=== PATIENT | female | born 1960 | race Two or more races ===

== ENCOUNTER 2016-10-28 23:08 | Inpatient (IN) | payer MEDICAID ==
[~2016-10-28] VITALS: Ht 157.5 cm; Wt 100.8 kg
[2016-10-28 23:38] LABS: Basophils # (auto) 0 uL; Basophils % (auto) 0.3 % (0.0-2.0); DEFINITIVE VIEW TRANSMISSION; Eosinophils # (auto) 0.2 uL; Eosinophils % (auto) 1.2 % (0.0-7.0); Hematocrit 36.5 % (36.0-46.0); Hemoglobin 11.6 g/dL (12.2-16.2); Lymphocytes # (auto) 1.5 uL; Lymphocytes % (auto) 9.4 % (10.0-50.0); Mean Corpuscular Hemoglobin 24.5 pg (28.0-32.0); Mean Corpuscular Hgb Conc. 31.7 g/dL (32.0-36.0); Mean Corpuscular Volume 77.1 fL (80.0-100.0); Mean Platelet Volume 10.6 fL (7.4-10.4); Monocytes % (auto) 6.5 % (0.0-12.0); Neutrophils # (auto) 13.1 uL; Neutrophils % (auto) 82.6 % (37.0-80.0); Platelet Count (auto) 311 10^3/uL (140-450); Red Cell Distribution Width 17.8 % (11.6-16.0); White Blood Cell 15.8 10^3/uL (4.4-10.8)
[2016-10-28 23:49] LABS: INR 1.11 (0.9-1.15); Partial Thromboplastin Time 27.6 sec (22.64-33.71); Prothrombin Time 11.4 sec (9.37-12.3)
[2016-10-28 23:52] LABS: Albumin 3.3 g/dL (3.4-5.0); BUN/Creatinine Ratio 21.4; Calcium 7.9 mg/dL (8.5-10.1); Magnesium 1.8 mg/dL (1.6-2.6); Potassium 4.1 mmol/L (3.5-5.1)
[2016-10-29] VITALS (30 sets, daily range): BP systolic 92–163; BP diastolic 43–90
[2016-10-29 00:01] LABS: Bilirubin, Total 0.3 mg/dL (0.2-1.0); Total Protein 7.5 g/dL (6.4-8.2)
[2016-10-29 00:13] LABS: B-Type Natriuretic Peptide 54.97 pg/mL (0-100)
[2016-10-29 00:49] LABS: Urine Bilirubin Negative (Negative); Urine Blood Negative /uL (Negative); Urine Color Yellow (Yellow); Urine Granular Cast FEW /lpf (0); Urine Hyaline Cast FEW /lpf (0 - 2); Urine Ketone Negative (Negative); Urine Nitrite Negative (Negative); Urine RBC <1 /hpf (0 - 4); Urine Urobilinogen Normal (Negative)
[2016-10-29 00:50] LABS: Urine Glucose 4+ mg/dL (Normal)
[2016-10-29] MEDS ORDERED: SODIUM CHLORIDE 0.9% 1,000 ML IV SCH ×2 (07:38→23:58)
[2016-10-29] MEDS ORDERED: IPRATROPIUM BROM 0.5 MG/2.5ML INH SOL NEB PRN (07:45)
[2016-10-29] MEDS ORDERED: MORPHINE SULF INJ 2 MG/ML SYRINGE 1ML IV PRN (07:45)
[2016-10-29] MEDS ORDERED: LACTULOSE 20Gm/30ML SOLN PO PRN (07:45)
[2016-10-29] MEDS ORDERED: DEXTROSE (50%) 50ML SYRG IV PRN (07:45)
[2016-10-29] MEDS ORDERED: LEVOFLOXACIN 500MG 100 ML IV ONE (07:45)
[2016-10-29] MEDS ORDERED: NITROGLYCERIN 0.4 MG SL TAB SL PRN (07:45)
[2016-10-29] MEDS ORDERED: LEVOFLOXACIN 500MG 100 ML IV SCH (08:00)
[2016-10-29] MEDS: FERROUS SULFATE 325 MG TAB PO SCH ×3 (08:04→18:00)
[2016-10-29] MEDS: methylPREDNISolone SOD SUCC 125 MG/2 ML VL IV SCH ×2 (08:04→08:06)
[2016-10-29] MEDS: ENOXAPARIN SOD 150 MG/1 ML SYRINGE SC SCH ×2 (08:04→08:05)
[2016-10-29] MEDS: PANTOPRAZOLE SODIUM 40 MG/10 ML VIAL IV SCH (08:05)
[2016-10-29 08:27] LABS: DEFINITIVE VIEW TRANSMISSION; Hematocrit 32.1 % (36.0-46.0); Hemoglobin 10.1 g/dL (12.2-16.2); Mean Corpuscular Hemoglobin 24.1 pg (28.0-32.0); Mean Corpuscular Hgb Conc. 31.4 g/dL (32.0-36.0); Mean Platelet Volume 10.3 fL (7.4-10.4); Platelet Count (auto) 304 10^3/uL (140-450); Red Cell Distribution Width 17.9 % (11.6-16.0); SUSPECT VIEW TRANSMISSION; White Blood Cell 17.1 10^3/uL (4.4-10.8)
[2016-10-29 08:28] LABS: BUN/Creatinine Ratio 19.7; Bilirubin, Total 0.3 mg/dL (0.2-1.0); Potassium 4.8 mmol/L (3.5-5.1); Total Protein 6.6 g/dL (6.4-8.2)
[2016-10-29 08:31] LABS: Metamyelocytes % 0; Myelocytes % 0; Promyelocytes % 0; Reactive Lymphocytes 0
[2016-10-29 09:20] LABS: Giant Platelets Few; Platelet Estimate Adequate
[2016-10-29] MEDS ORDERED: LISINOPRIL 20 MG TAB PO SCH (10:00)
[2016-10-29] MEDS ORDERED: POTASSIUM CHL 10 Meq TABLET PO SCH (10:00)
[2016-10-29] MEDS ORDERED: FUROSEMIDE 20 MG TAB PO SCH (10:00)
[2016-10-29] MEDS: IPRATROPIUM BROM 0.5 MG/2.5ML INH SOL NEB SCH ×3 (10:55→22:15)
[2016-10-29] MEDS: ALBUTEROL SULF 2.5 MG/0.5ML(0.5%) NEB SOLN NEB SCH ×4 (10:55→22:15)
[2016-10-29] MEDS: SODIUM CHLORIDE 0.9% 1,000 ML IV SCH (11:45)
[2016-10-29] MEDS ORDERED: methylPREDNISolone SOD SUCC 125 MG/2 ML VL IV SCH (12:00)
[2016-10-29] MEDS: methylPREDNISolone SOD SUCC 40 MG/ML VL IV SCH ×3 (12:15→23:46)
[2016-10-29] MEDS: ACCU-CHEK COMFORT CURVE STRIP VI SCH ×3 (12:17→23:47)
[2016-10-29] MEDS: InsuLIN REG 1unit/0.01ml Soln (100units/ml) SC SCH ×2 (12:18→18:21)
[2016-10-29 13:11] LABS: Basophils # (auto) 0 uL; Basophils % (auto) 0.1 % (0.0-2.0); DEFINITIVE VIEW TRANSMISSION; Eosinophils # (auto) 0 uL; Eosinophils % (auto) 0.1 % (0.0-7.0); Hemoglobin 10.4 g/dL (12.2-16.2); Lymphocytes # (auto) 0.6 uL; Lymphocytes % (auto) 4.5 % (10.0-50.0); Mean Corpuscular Hemoglobin 24.3 pg (28.0-32.0); Mean Corpuscular Hgb Conc. 31.5 g/dL (32.0-36.0); Mean Corpuscular Volume 77.3 fL (80.0-100.0); Mean Platelet Volume 10.1 fL (7.4-10.4); Monocytes # (auto) 0.2 uL; Monocytes % (auto) 1.7 % (0.0-12.0); Neutrophils # (auto) 13.4 uL; Neutrophils % (auto) 93.6 % (37.0-80.0); Platelet Count (auto) 277 10^3/uL (140-450); Red Cell Distribution Width 17.9 % (11.6-16.0); White Blood Cell 14.3 10^3/uL (4.4-10.8)
[2016-10-29 13:18] LABS: INR 1.14 (0.9-1.15); Partial Thromboplastin Time 37.5 sec (22.64-33.71); Prothrombin Time 11.7 sec (9.37-12.3)
[2016-10-29] MEDS: HEPARIN DRIP/D5W 100UNITS/ML 250 ML IV SCH ×2 (13:31→22:00)
[2016-10-29 19:18] LABS: INR 1.17 (0.9-1.15)
[2016-10-29] MEDS: AMITRIPTYLINE HCL 25 MG TAB PO SCH (21:56)
[2016-10-29] MEDS: BUDESONIDE (INHALATION) 0.5 MG/2 ML NEB NEB SCH (22:15)
[2016-10-29] MEDS ORDERED: InsuLIN R (HUMAN) 100 UNITS in SODIUM CHL 0.9% 99 ML IV SCH (23:58)
[2016-10-30] VITALS (37 sets, daily range): BP systolic 98–178; BP diastolic 44–85
[2016-10-30] MEDS: InsuLIN REG 1unit/0.01ml Soln (100units/ml) SC SCH ×11 (00:15→22:00)
[2016-10-30] MEDS: ACCU-CHEK COMFORT CURVE STRIP VI SCH ×12 (00:15→22:00)
[2016-10-30] MEDS ORDERED: DEXTROSE (50%) 50ML SYRG IV PRN ×2 (00:30)
[2016-10-30] MEDS ORDERED: InsuLIN REG 1unit/0.01ml Soln (100units/ml) SC ONE (01:00)
[2016-10-30 01:46] LABS: Prothrombin Time 12.2 sec (9.37-12.3)
[2016-10-30 01:48] LABS: INR 1.18 (0.9-1.15)
[2016-10-30 01:49] LABS: Partial Thromboplastin Time 80.9 sec (22.64-33.71)
[2016-10-30] MEDS: HEPARIN DRIP/D5W 100UNITS/ML 250 ML IV SCH ×4 (01:59→21:00)
[2016-10-30] MEDS ORDERED: ACCU-CHEK COMFORT CURVE STRIP VI SCH (02:00)
[2016-10-30] MEDS: ALBUTEROL SULF 2.5 MG/0.5ML(0.5%) NEB SOLN NEB SCH ×6 (02:20→22:05)
[2016-10-30] MEDS: IPRATROPIUM BROM 0.5 MG/2.5ML INH SOL NEB SCH ×6 (02:20→22:05)
[2016-10-30 03:51] LABS: Basophils # (auto) 0 uL; DEFINITIVE VIEW TRANSMISSION; Eosinophils # (auto) 0 uL; Hematocrit 31.6 % (36.0-46.0); Hemoglobin 9.9 g/dL (12.2-16.2); Lymphocytes # (auto) 0.8 uL; Lymphocytes % (auto) 7.1 % (10.0-50.0); Mean Corpuscular Hemoglobin 24.2 pg (28.0-32.0); Mean Corpuscular Hgb Conc. 31.5 g/dL (32.0-36.0); Mean Platelet Volume 10.1 fL (7.4-10.4); Monocytes # (auto) 0.4 uL; Monocytes % (auto) 3.3 % (0.0-12.0); Neutrophils # (auto) 10.2 uL; Neutrophils % (auto) 89.6 % (37.0-80.0); Platelet Count (auto) 278 10^3/uL (140-450); Red Cell Distribution Width 17.9 % (11.6-16.0); White Blood Cell 11.4 10^3/uL (4.4-10.8)
[2016-10-30] MEDS ORDERED: SODIUM CHLORIDE 0.9% 1,000 ML IV SCH ×2 (03:58→05:58)
[2016-10-30 04:17] LABS: Albumin 2.7 g/dL (3.4-5.0); BUN/Creatinine Ratio 37.6; Bilirubin, Total 0.3 mg/dL (0.2-1.0); Calcium 8.5 mg/dL (8.5-10.1); Magnesium 2.5 mg/dL (1.6-2.6); Potassium 4.6 mmol/L (3.5-5.1); Total Protein 6.4 g/dL (6.4-8.2)
[2016-10-30 04:19] LABS: B-Type Natriuretic Peptide 76.87 pg/mL (0-100)
[2016-10-30 04:45] LABS: Temperature: 21.9 C (20.0-25.0)
[2016-10-30] MEDS: methylPREDNISolone SOD SUCC 40 MG/ML VL IV SCH ×3 (06:29→19:05)
[2016-10-30] MEDS ORDERED: InsuLIN REG 1unit/0.01ml Soln (100units/ml) SC SCH (07:00)
[2016-10-30] MEDS ORDERED: LEVOFLOXACIN 250MG 50 ML IV SCH (08:00)
[2016-10-30 08:18] LABS: BUN/Creatinine Ratio 40.2; Calcium 8.4 mg/dL (8.5-10.1); Potassium 4.5 mmol/L (3.5-5.1)
[2016-10-30 08:42] LABS: INR 1.17 (0.9-1.15)
[2016-10-30 08:43] LABS: Partial Thromboplastin Time 71.3 sec (22.64-33.71)
[2016-10-30] MEDS: PANTOPRAZOLE SODIUM 40 MG/10 ML VIAL IV SCH (09:12)
[2016-10-30] MEDS: LEVOFLOXACIN 500MG 100 ML IV SCH (09:12)
[2016-10-30] MEDS: FERROUS SULFATE 325 MG TAB PO SCH ×3 (09:12→19:05)
[2016-10-30] MEDS: BUDESONIDE (INHALATION) 0.5 MG/2 ML NEB NEB SCH ×2 (10:14→22:05)
[2016-10-30 12:59] LABS: Calcium 8.4 mg/dL (8.5-10.1); Potassium 4.6 mmol/L (3.5-5.1)
[2016-10-30 14:23] LABS: INR 1.12 (0.9-1.15); Partial Thromboplastin Time 54.9 sec (22.64-33.71); Prothrombin Time 11.5 sec (9.37-12.3)
[2016-10-30] MEDS ORDERED: IOHEXOL 350 MG/ML 100ML IJ ONE (18:16)
[2016-10-30 19:46] LABS: BUN/Creatinine Ratio 38.4; Calcium 8.5 mg/dL (8.5-10.1); Potassium 4.5 mmol/L (3.5-5.1)
[2016-10-30 19:57] LABS: INR 1.1 (0.9-1.15); Partial Thromboplastin Time 33.5 sec (22.64-33.71); Prothrombin Time 11.3 sec (9.37-12.3)
[2016-10-30] MEDS: SODIUM CHLORIDE 0.9% 1,000 ML IV SCH (19:57)
[2016-10-30] MEDS ORDERED: HEPARIN 1,000 UNITS/ml 1ML VIAL ONE (20:52)
[2016-10-30] MEDS ORDERED: HEPARIN SODIUM (PORCINE) 5000 UNITS/ML 1ML VIAL IV ONE (21:00)
[2016-10-30] MEDS: AMITRIPTYLINE HCL 25 MG TAB PO SCH (22:00)
[2016-10-31] VITALS (25 sets, daily range): BP systolic 116–180; BP diastolic 46–95
[2016-10-31] MEDS: InsuLIN REG 1unit/0.01ml Soln (100units/ml) SC SCH ×7 (00:04→17:00)
[2016-10-31] MEDS: methylPREDNISolone SOD SUCC 40 MG/ML VL IV SCH ×4 (00:04→22:07)
[2016-10-31] MEDS: ACCU-CHEK COMFORT CURVE STRIP VI SCH ×9 (00:04→22:07)
[2016-10-31] MEDS: IPRATROPIUM BROM 0.5 MG/2.5ML INH SOL NEB SCH ×6 (02:16→23:15)
[2016-10-31] MEDS: ALBUTEROL SULF 2.5 MG/0.5ML(0.5%) NEB SOLN NEB SCH ×6 (02:16→23:15)
[2016-10-31 04:34] LABS: Basophils # (auto) 0 uL; Basophils % (auto) 0.1 % (0.0-2.0); DEFINITIVE VIEW TRANSMISSION; Eosinophils # (auto) 0 uL; Hematocrit 33.9 % (36.0-46.0); Hemoglobin 10.9 g/dL (12.2-16.2); Lymphocytes # (auto) 1.2 uL; Lymphocytes % (auto) 8.1 % (10.0-50.0); Mean Corpuscular Hemoglobin 24.9 pg (28.0-32.0); Mean Corpuscular Hgb Conc. 32.2 g/dL (32.0-36.0); Mean Corpuscular Volume 77.4 fL (80.0-100.0); Mean Platelet Volume 11.1 fL (7.4-10.4); Monocytes # (auto) 0.7 uL; Monocytes % (auto) 4.7 % (0.0-12.0); Neutrophils # (auto) 13.2 uL; Neutrophils % (auto) 87.1 % (37.0-80.0); Platelet Count (auto) 260 10^3/uL (140-450); Red Cell Distribution Width 16.8 % (11.6-16.0); SUSPECT VIEW TRANSMISSION; White Blood Cell 15.1 10^3/uL (4.4-10.8)
[2016-10-31 04:58] LABS: BUN/Creatinine Ratio 38.8; Calcium 8.4 mg/dL (8.5-10.1); Potassium 4.5 mmol/L (3.5-5.1)
[2016-10-31 05:18] LABS: Prothrombin Time 12.1 sec (9.37-12.3)
[2016-10-31 05:23] LABS: INR 1.17 (0.9-1.15)
[2016-10-31 05:25] LABS: Partial Thromboplastin Time 148.7 sec (22.64-33.71)
[2016-10-31] MEDS: FERROUS SULFATE 325 MG TAB PO SCH ×3 (08:28→18:00)
[2016-10-31] MEDS: BUDESONIDE (INHALATION) 0.5 MG/2 ML NEB NEB SCH ×2 (09:54→23:15)
[2016-10-31] MEDS: PANTOPRAZOLE SODIUM 40 MG/10 ML VIAL IV SCH ×2 (10:00→10:07)
[2016-10-31] MEDS: LEVOFLOXACIN 500MG 100 ML IV SCH (10:07)
[2016-10-31] MEDS: SODIUM CHLORIDE 0.9% 1,000 ML IV SCH (10:07)
[2016-10-31] MEDS ORDERED: FUROSEMIDE 20 MG TAB PO SCH (11:30)
[2016-10-31] MEDS ORDERED: LISINOPRIL 20 MG TAB PO SCH (11:30)
[2016-10-31] MEDS ORDERED: hydrALAZINE HCL 20 MG/ML VL IV PRN (12:00)
[2016-10-31] MEDS: HYDROcodone-ACET 10/325MG TAB PO PRN ×2 (12:14→19:34)
[2016-10-31] MEDS ORDERED: DEXTROSE (50%) 50ML SYRG IV PRN (12:15)
[2016-10-31] MEDS: amLODIPine BESYLATE 5 MG TAB PO SCH (12:17)
[2016-10-31] MEDS: INSULIN DETEMIR(LEVEMIR) 1unit/0.01ml Soln (100units/ml) SC SCH (12:38)
[2016-10-31] MEDS ORDERED: methylPREDNISolone SOD SUCC 40 MG/ML VL IV SCH (22:00)
[2016-10-31] MEDS ORDERED: InsuLIN REG 1unit/0.01ml Soln (100units/ml) SC SCH (22:00)
[2016-10-31] MEDS: AMITRIPTYLINE HCL 25 MG TAB PO SCH (22:07)
[2016-11-01] MEDS: IPRATROPIUM BROM 0.5 MG/2.5ML INH SOL NEB SCH ×5 (02:42→18:00)
[2016-11-01] MEDS: ALBUTEROL SULF 2.5 MG/0.5ML(0.5%) NEB SOLN NEB SCH ×5 (02:42→18:00)
[2016-11-01 05:00] VITALS: BP 126/54
[2016-11-01] MEDS: methylPREDNISolone SOD SUCC 40 MG/ML VL IV SCH ×2 (06:15→14:00)
[2016-11-01] MEDS: ACCU-CHEK COMFORT CURVE STRIP VI SCH ×3 (06:34→16:54)
[2016-11-01] MEDS: InsuLIN REG 1unit/0.01ml Soln (100units/ml) SC SCH ×3 (06:34→17:17)
[2016-11-01] MEDS: INSULIN DETEMIR(LEVEMIR) 1unit/0.01ml Soln (100units/ml) SC SCH (06:36)
[2016-11-01 06:51] LABS: Urine Bilirubin Negative (Negative); Urine Blood 2+ /uL (Negative); Urine Color Yellow (Yellow); Urine Glucose 4+ mg/dL (Normal); Urine Ketone Negative (Negative); Urine Mucus FEW (None Seen); Urine Nitrite Negative (Negative); Urine RBC 85 /hpf (0 - 4); Urine Squamous Epithelial Cell FEW /hpf (<5); Urine Urobilinogen Normal (Negative); Urine pH 6.5 (5.0-8.0)
[2016-11-01] MEDS: FERROUS SULFATE 325 MG TAB PO SCH ×3 (08:54→17:18)
[2016-11-01] MEDS: LEVOFLOXACIN 500MG 100 ML IV SCH (08:55)
[2016-11-01] MEDS: amLODIPine BESYLATE 5 MG TAB PO SCH (08:55)
[2016-11-01 09:00] VITALS: BP 157/76
[2016-11-01] MEDS ORDERED: FUROSEMIDE 20 MG TAB PO SCH (10:00)
[2016-11-01] MEDS: BUDESONIDE (INHALATION) 0.5 MG/2 ML NEB NEB SCH (11:16)
[2016-11-01 13:00] VITALS: BP 141/66
[2016-11-01] MEDS ORDERED: SITA100T7 PO (14:19)
[2016-11-01] MEDS ORDERED: LISI-646 PO (14:19)
[2016-11-01] MEDS ORDERED: ESCI20TA51 PO (14:19)
[2016-11-01] MEDS ORDERED: OME20T PO (14:19)
[2016-11-01] MEDS ORDERED: ALPR1TAB2 PO (14:19)
[2016-11-01] MEDS ORDERED: PIOG45TA OR (14:19)
[2016-11-01] MEDS ORDERED: GABA300C8 PO (14:19)
[2016-11-01] MEDS ORDERED: DOCU100T15 PO (14:19)
[2016-11-01] MEDS ORDERED: MECL1TAB42 PO (14:19)
[2016-11-01] MEDS ORDERED: FURO20TA PO ×2 (14:19→16:55)
[2016-11-01] MEDS ORDERED: POTA-167 PO (14:19)
[2016-11-01] MEDS ORDERED: AMIT150T PO (14:19)
[2016-11-01] MEDS ORDERED: METF-316 PO (14:19)
[2016-11-01] MEDS ORDERED: FENO130C6 OR (14:19)
[2016-11-01 16:41] VITALS: BP 132/61
[2016-11-01] MEDS ORDERED: LEVEMIR SC (16:48)
[2016-11-01] MEDS ORDERED: IPRA0.03 (16:51)
[2016-11-01] MEDS ORDERED: ALBU1.257 IN (16:51)
[2016-11-01] MEDS ORDERED: INSREGI SC (16:55)
[2016-11-01] MEDS ORDERED: PRED-559 PO (16:55)
[2016-11-01] MEDS ORDERED: AML5T PO (16:55)
[2016-11-01] MEDS ORDERED: LEVO500T3 PO (16:58)
[2016-11-01] MEDS ORDERED: INSULIN DETEMIR(LEVEMIR) 1unit/0.01ml Soln (100units/ml) SC ONE (17:00)
[2016-11-01 17:32] VITALS: BP 132/61
[2016-11-02] MEDS ORDERED: INSULIN DETEMIR(LEVEMIR) 1unit/0.01ml Soln (100units/ml) SC SCH (07:00)
== END 2016-11-01 19:25 | disposition home health service (06) | DRG 720 ==
LOC: ER 23:36 → TELE 23:37 → ICU WEST 10-29 09:10 → TELE-WESTW 10-31 21:05
PROVIDERS: ADMIT Family Medicine; ATTEND Hospitalist
PROC: 5A09357 Assistance with Respiratory Ventilation, Less than 24 Consecutive Hours, Continuous Positive Airway Pressure (ICD-10-PCS; principal; 2016-10-29)
DX: A41.9 Sepsis, unspecified organism (principal); J96.21 Acute and chronic respiratory failure with hypoxia; N17.0 Acute kidney failure with tubular necrosis; J69.0 Pneumonitis due to inhalation of food and vomit; G92 Toxic encephalopathy; F11.10 Opioid abuse, uncomplicated; D50.9 Iron deficiency anemia, unspecified; I13.0 Hypertensive heart and chronic kidney disease with heart failure and stage 1 through stage 4 chronic kidney disease, or unspecified chronic kidney disease; I50.9 Heart failure, unspecified; E11.22 Type 2 diabetes mellitus with diabetic chronic kidney disease; J96.22 Acute and chronic respiratory failure with hypercapnia; N18.3 Chronic kidney disease, stage 3 (moderate); J44.0 Chronic obstructive pulmonary disease with (acute) lower respiratory infection; J44.1 Chronic obstructive pulmonary disease with (acute) exacerbation; J45.909 Unspecified asthma, uncomplicated; M15.9 Polyosteoarthritis, unspecified; T38.0X5A Adverse effect of glucocorticoids and synthetic analogues, initial encounter; R65.20 Severe sepsis without septic shock; F32.9 Major depressive disorder, single episode, unspecified; F10.10 Alcohol abuse, uncomplicated; E78.5 Hyperlipidemia, unspecified; E66.01 Morbid (severe) obesity due to excess calories; E11.65 Type 2 diabetes mellitus with hyperglycemia; D63.8 Anemia in other chronic diseases classified elsewhere; E78.00 Pure hypercholesterolemia, unspecified; E87.1 Hypo-osmolality and hyponatremia; Z95.5 Presence of coronary angioplasty implant and graft; Z99.81 Dependence on supplemental oxygen; Y92.009 Unspecified place in unspecified non-institutional (private) residence as the place of occurrence of the external cause; Z88.0 Allergy status to penicillin; Z68.41 Body mass index [BMI] 40.0-44.9, adult
CPT/HCPCS: 36415; 36600; 70450; 71010; 71275; 80048; 80053; 80061; 80320; 81001; 82010; 82570; 82805; 82962; 83036; 83605; 83735; 83880; 84156; 84300; 84484; 85007; 85025; 85027; 85049; 85379; 85610; 85730; 87040; 87081; 92610; 93005; 93306; 93970; 94640; 94660; 96372; 96374; 96375; C9113; G0434; J1815; J1956